=== PATIENT | male | born 1955 | race Caucasian/White ===

== ENCOUNTER 2024-06-16 22:02 | Inpatient (IN) | payer OTHER ==
[~2024-06-16] VITALS: Ht 167.6 cm; Wt 77.1 kg
[~2024-06-16 22:02] MED LIST: FLOMAX0.4 MG PO; MELATONIN3 MG PO; RISPERDAL0.5 MG PO; ROSUVASTATIN CA20 MG PO; ULTRAM50 MG PO
[2024-06-16 23:08] VITALS: BP 116/64
[2024-06-16] MEDS ORDERED: ACETAMINOPHEN 325 MG TAB PO PRN (23:20)
[2024-06-16] MEDS ORDERED: MG-AL HYDROXIDE/SIMETICONE 30 ML UDC PO PRN (23:20)
[2024-06-16] MEDS ORDERED: Magnesium Hydroxide 30 ML UDC PO PRN (23:20)
[2024-06-17] MEDS ORDERED: Water, Sterile 10 ML VIAL IM PRN (00:35)
[2024-06-17] MEDS ORDERED: Ziprasidone Mesylate 20 MG VIAL IM PRN (00:35)
[2024-06-17] MEDS ORDERED: LORazepam 2 MG/ML VIAL IM PRN ×2 (00:35)
[2024-06-17] MEDS ORDERED: LORazepam 1 MG TAB PO PRN (00:40)
[2024-06-17 08:15] VITALS: BP 118/79
[2024-06-17] MEDS ORDERED: Thiamine 100 MG TAB PO SCH (09:00)
[2024-06-17] MEDS ORDERED: Rivastigmine Tartrate 4.6 MG/24 HR PATCH T SCH (09:00)
[2024-06-17] MEDS ORDERED: Menthol/Zinc Oxide 4 GM THIN T SCH ×2 (09:00→22:00)
[2024-06-17] MEDS ORDERED: Menthol/Zinc Oxide 4 GM THIN T PRN (11:40)
[2024-06-17] MEDS ORDERED: AMMONIUM LACTATE 12% LOTION T SCH (11:42)
[2024-06-17] MEDS ORDERED: MICONAZOLE NITRATE 2% 75 GM BOT T SCH (11:42)
[2024-06-17 16:45] VITALS: BP 118/79
[2024-06-17 20:00] VITALS: BP 116/59
[2024-06-17] MEDS ORDERED: RISPERIDONE 0.5 MG TAB PO SCH (21:00)
[2024-06-17] MEDS ORDERED: Memantine Hydrochloride 5 MG TAB PO SCH (21:00)
[2024-06-17] MEDS ORDERED: Tamsulosin Hydrochloride 0.4 MG CAP PO SCH (22:00)
[2024-06-17] MEDS ORDERED: Melatonin 3 MG TABLET PO SCH (22:00)
[2024-06-18 08:05] VITALS: BP 120/66
[2024-06-18 20:00] VITALS: BP 131/54
[2024-06-18] MEDS ORDERED: Memantine Hydrochloride 5 MG TAB PO SCH (21:00)
[2024-06-19 07:59] VITALS: BP 107/52
[2024-06-19] MEDS ORDERED: Rivastigmine Tartrate 9.5 MG/24 HR PATCH T SCH (09:00)
[2024-06-19] MEDS ORDERED: Memantine Hydrochloride 5 MG TAB PO SCH (09:00)
[2024-06-19 09:04] LABS: HEMATOCRIT 41.8 % (42.0-52.0); MEAN CELL VOLUME 89.5 fl (80.0-94.0); MEAN CORPUSCULAR HGB 29.1 pg (27.0-31.0); MEAN CORPUSCULAR HGB CONC 32.5 g/dl (33.0-37.0); MEAN PLATELET VOLUME 13.3 fl (9.6-12.3); PLATELET COUNT AUTOMATED 169 10*3/uL (130-400); RED BLOOD COUNT 4.67 10*6/uL (4.50-5.90); RED CELL DISTRI WIDTH 12.6 % (0-14.5); WHITE BLOOD COUNT 7.7 10*3/uL (4.8-10.8)
[2024-06-19 09:06] LABS: MANUAL DIFF REFLEX YES
[2024-06-19 09:23] LABS: BURR CELLS FEW; OVALOCYTES FEW; PLATELET SUFFICIENCY NORMAL (NORMAL); POLYCHROMASIA SLIGHT; TOTAL CELLS COUNTED 100 #CELLS
[2024-06-19 12:35] LABS: BASO % 0.1 % (0.0-1.0); EOS # 0.2 10*3/uL (0.0-0.4); EOS % 3.1 % (1.0-4.0); HEMATOCRIT 42.9 % (42.0-52.0); LYMPH # 1.5 10*3/uL (1.3-4.4); LYMPH % 21.3 % (27.0-41.0); MEAN CELL VOLUME 90.1 fl (80.0-94.0); MEAN CORPUSCULAR HGB CONC 32.2 g/dl (33.0-37.0); MEAN PLATELET VOLUME 12.5 fl (9.6-12.3); MONO # 0.5 10*3/uL (0.1-1.0); MONO % 6.5 % (3.0-9.0); NEUT # 4.8 10*3/uL (2.3-7.9); NEUT % 68.7 % (47.0-73.0); PLATELET COUNT AUTOMATED 161 10*3/uL (130-400); RED BLOOD COUNT 4.76 10*6/uL (4.50-5.90); RED CELL DISTRI WIDTH 12.5 % (0-14.5); WHITE BLOOD COUNT 7.1 10*3/uL (4.8-10.8)
[2024-06-19 16:00] VITALS: BP 107/52
[2024-06-19 17:07] LABS: BILIRUBIN Negative (Negative); BLOOD Negative (Negative); CLARITY Clear (Clear); COLOR Yellow (Yellow); GLUCOSE Negative (Negative); KETONE Negative (Negative); LEUKO ESTERASE Negative (Negative); NITRITE Negative (Negative)
[2024-06-19 17:25] LABS: EPITHELIAL CELLS 0-2; WBC 0-2 wbc/hpf (0-5)
[2024-06-19 20:00] VITALS: BP 130/60
[2024-06-19] MEDS ORDERED: Memantine Hydrochloride 10 MG TAB PO SCH (21:00)
[2024-06-20 08:00] VITALS: BP 119/63
[2024-06-20 08:08] LABS: ALKALINE PHOSPHATASE 83 U/L (46-116); BUN 11 mg/dl (9-23); CHLORIDE 107 mmol/L (98-107); POTASSIUM 4.1 mmol/L (3.4-5.1); SGPT/ALT 44 U/L (5-49)
[2024-06-20] MEDS ORDERED: GADOTERATE MEGLUMINE 10 MMOL/20 ML VIAL IV ONE (10:13)
[2024-06-20 20:00] VITALS: BP 125/52
[2024-06-20] MEDS ORDERED: Memantine Hydrochloride 10 MG TAB PO SCH (21:00)
[2024-06-21 08:00] VITALS: BP 141/86
[2024-06-21] MEDS ORDERED: RIVASTIGMINE 13.3 MG/24 HR TDM T SCH (09:00)
[2024-06-21] MEDS ORDERED: RISPERIDONE 0.5 MG TAB PO SCH (09:00)
[2024-06-21 20:00] VITALS: BP 143/66
[2024-06-22 08:57] VITALS: BP 125/75
[2024-06-22] MEDS ORDERED: DIVALPROEX (DR) 250 MG TAB PO SCH (09:00)
[2024-06-22 20:00] VITALS: BP 112/60
[2024-06-23 06:28] LABS: BILIRUBIN Negative (Negative); BLOOD Negative (Negative); CLARITY Clear (Clear); COLOR Yellow (Yellow); GLUCOSE Negative (Negative); KETONE Trace (Negative); LEUKO ESTERASE Negative (Negative); NITRITE Negative (Negative); UROBILINOGEN 0.2 E.U./dl (0.0-1.0)
[2024-06-23 07:45] LABS: BACTERIA 2+; WBC 0-2 wbc/hpf (0-5)
[2024-06-23 20:00] VITALS: BP 101/63
[2024-06-24 08:10] VITALS: BP 105/65
[2024-06-24] MEDS ORDERED: LORazepam 1 MG TAB PO PRN (10:25)
[2024-06-24] MEDS ORDERED: LORazepam 2 MG/ML VIAL IM PRN (10:25)
[2024-06-24 20:00] VITALS: BP 127/61
[2024-06-25 08:23] VITALS: BP 117/61
[2024-06-25] MEDS ORDERED: LORazepam 0.5 MG TAB PO SCH (13:00)
[2024-06-25 20:00] VITALS: BP 129/63
[2024-06-26 08:00] VITALS: BP 106/64
[2024-06-26] MEDS ORDERED: ALPRAZolam 0.5 MG TAB PO ONE (11:40)
[2024-06-26] MEDS ORDERED: ALPRAZolam 0.5 MG TAB PO SCH (11:45)
== END 2024-06-26 20:39 | disposition short-term general hospital (02) | DRG 883 ==
LOC: 3N 22:02
PROVIDERS: Nurse Practitioner; Student in an Organized Health Care Education/Training Program; ADMIT Psychiatry & Neurology Psychiatry; ATTEND Psychiatry & Neurology Psychiatry
PROC: GZHZZZZ Group Psychotherapy (ICD-10-PCS; principal; 2024-06-17)
PROC: GZ51ZZZ Individual Psychotherapy, Behavioral (ICD-10-PCS; 2024-06-17)
DX: F63.81 Intermittent explosive disorder (principal); F23 Brief psychotic disorder; F32.1 Major depressive disorder, single episode, moderate; F10.27 Alcohol dependence with alcohol-induced persisting dementia; F02.82 Dementia in other diseases classified elsewhere, unspecified severity, with psychotic disturbance; Z66 Do not resuscitate; G30.9 Alzheimer's disease, unspecified; F43.10 Post-traumatic stress disorder, unspecified; F32.9 Major depressive disorder, single episode, unspecified; F41.9 Anxiety disorder, unspecified; R73.03 Prediabetes; Z87.891 Personal history of nicotine dependence; Z79.899 Other long term (current) drug therapy